=== PATIENT | female | born 1990 | race African-American/Black ===

== ENCOUNTER 2016-10-17 09:29 | Emergency (ER) | payer OTHER ==
[~2016-10-17] VITALS: Ht 170.2 cm; Wt 90.7 kg
--- NOTE | 2016-10-17 10:23 | PHYS DOC ---
Past Medical History Past Medical History: No Pertinent History Past Surgical History: Tubal ligation Alcohol Use: None Drug Use: None Adult General Chief Complaint Chief Complaint: SORE THROAT HPI HPI Patient is a 26 year old female who presents with sore throat since last night. Denies cough, congestion, n/v/d, or other accompanying symptoms. States she is unsure if fever at home. No interventions prior to arrival. Unknown illness exposure and no recent antibiotic use. Review of Systems Review of Systems Constitutional: Denies fever or chills Eyes: Denies change in visual acuity, redness, or eye pain ENT: Sore throat since last night Respiratory: Denies cough or shortness of breath Cardiovascular: No additional information not addressed in HPI GI: Denies abdominal pain, nausea, vomiting, bloody stools or diarrhea : Denies dysuria or hematuria Musculoskeletal: Denies back pain or joint pain Integument: Denies rash or skin lesions Neurologic: Denies headache, focal weakness or sensory changes Endocrine: Denies polyuria or polydipsia Current Medications Current Medications Current Medications Medications (Trade) Dose Ordered Sig/Ruperto Start Time Stop Time Status Last Admin Dose Admin Penicillin G Benzathine (Bicillin L-A) 1,200,000 unit 1X ONCE 10/17/16 10:30 10/17/16 10:31 DC 10/17/16 10:24 1,200,000 UNIT Allergies Allergies Allergies Coded Allergies Type Severity Reaction Last Updated Verified No Known Drug Allergies 11/20/14 No Physical Exam Physical Exam Constitutional: Well developed, well nourished, no acute distress, non-toxic appearance. HENT: Normocephalic, atraumatic, bilateral external ears normal, oropharynx moist, nose normal. Bilateral tonsils 3+ with exudate. Eyes: PERRLA, EOMI, conjunctiva normal, no discharge. Neck: Normal range of motion, no tenderness, supple, no stridor. Anterior cervical adenopathy Cardiovascular:Heart rate regular rhythm, no murmur Lungs & Thorax: Bilateral breath sounds clear to auscultation Abdomen: Bowel sounds normal, soft, no tenderness, no masses, no pulsatile masses. [] Skin: Warm, dry, no erythema, no rash. [] Back: No tenderness, no CVA tenderness. [] Extremities: No tenderness, no cyanosis, no clubbing, ROM intact, no edema. [] Neurologic: Alert and oriented X 3, normal motor function, normal sensory function, no focal deficits noted. [] Psychologic: Affect normal, judgement normal, mood normal. [] Current Patient Data Vital Signs Vital Signs Date Time Temp Pulse Resp B/P Pulse Ox O2 Delivery O2 Flow Rate FiO2 10/17/16 10:40 97 18 126/76 98 Room Air 10/17/16 09:36 98.8 98.8 Lab Values Laboratory Tests Test 10/17/16 09:37 Group A Streptococcus Rapid Negative (NEGATIVE) EKG EKG [] Radiology/Procedures Radiology/Procedures [] Impressions: 1. Acute Pharyngitis Course & Med Decision Making Course & Med Decision Making Pertinent Labs and Imaging studies reviewed. (See chart for details) [] Dragon Disclaimer Dragon Disclaimer This electronic medical record was generated, in whole or in part, using a voice recognition dictation system. Departure Departure Impression: Primary Impression: Pharyngitis, acute Disposition: 01 HOME, SELF-CARE Condition: STABLE Referrals: ROME GENTILE MD (PCP) Patient Instructions: Viral and Bacterial Pharyngitis, [id number] Additional Instructions: You have been given an antibiotic shot during your visit today for strep throat. You may take Ibuprofen or Tylenol to assist with discomfort and/or fever. Follow up with your doctor in 1-2 days. please return if problems or concerns. Problem Qualifiers Primary Impression: Pharyngitis, acute Pharyngitis/tonsillitis etiology: unspecified etiology Qualified Code: J02.9 - Acute pharyngitis, unspecified ARIEL LANGLEY APRN Oct 17, 2016 10:23
[2016-10-17 10:24] LABS: NEGATIVE OBC STREP NEG; POSITIVE OBC STREP POS
[2016-10-17] MEDS ORDERED: PENICILLIN G BENZATHINE LA 1,200,000 UNIT/2 ML DISP.SYRIN. IM ONE (10:30)
[2016-10-17 10:40] VITALS: BP 126/76
== END 2016-10-17 10:45 | disposition home or self-care (01) ==
LOC: ER 09:29
DX: J02.9 Acute pharyngitis, unspecified (principal)
CPT/HCPCS: 87070; 87880; 96372; 99283; J0561

== ENCOUNTER 2018-11-07 01:39 | Emergency (ER) | payer SELFPAY ==
[~2018-11-07] VITALS: Ht 170.2 cm; Wt 90.7 kg
[2018-11-07 02:15] VITALS: BP 145/90
[2018-11-07 02:30] LABS: BILIRUBIN,URINE NEGATIVE (NEG); CLARITY,URINE CLOUDY; COLOR,URINE YELLOW; NITRITE,URINE POSITIVE (NEG); PROTEIN,URINE 100 mg/dL (NEG-TRACE)
[2018-11-07 02:39] LABS: BACTERIA,URINE MANY /HPF (0-FEW); SQUAMOUS EPITHELIAL CELL,UR OCC /LPF; WBC,URINE TNTC /HPF (0-4)
[2018-11-07] MEDS ORDERED: CEPH500C PO (03:10)
[2018-11-07] MEDS ORDERED: HYDR-3164 PO (03:10)
--- NOTE | 2018-11-07 03:14 | PHYS DOC ---
Past Medical History Past Medical History: No Pertinent History, UTI Past Surgical History: Tubal ligation Smoking: Less than 1pk/day Alcohol Use: Occasionally Drug Use: None (Denies recreational drug use) Adult General Chief Complaint Chief Complaint: FLANK PAIN HPI HPI Ms. Ludmila Inman is a 28 year old female who was presents with right flank pain. When entering the room pt was on cell phone talking. Pt reports the pain started earlier today around 1100 am gradual in onset, progressively worsening throughout the day. Her pain is located on her right flank and it radiates anteriorly and into her pelvis. also noted vaginal pain and itching and she wants to be checked for std Pt reports increased urgency and frequency but denies hematuria or dysuria. She denies having experienced pain like this before. She denies diarrhea/constipation, n/v, fever/chills.On questioning she denied any recreational drug use. She has had 3 children and then had an elective tubal ligation in 2013. 3 ML Review of Systems Review of Systems Constitutional: Denies fever or chills [] Eyes: Denies change in visual acuity, redness, or eye pain [] HENT: Denies nasal congestion or sore throat [] Respiratory: Denies cough or shortness of breath [] Cardiovascular: No additional information not addressed in HPI [] GI: Denies abdominal pain, nausea, vomiting, bloody stools or diarrhea [] : Denies dysuria or hematuria [] Musculoskeletal: Denies back pain or joint pain [] Integument: Denies rash or skin lesions [] Neurologic: Denies headache, focal weakness or sensory changes [] Endocrine: Denies polyuria or polydipsia [] All other systems were reviewed and found to be within normal limits, except as documented in this note. Family History Family History Maternal Grandfather - 64 yo, bladder or kidney cancer; maternal grandmother - 60 yo, has had breast cancer twice Father - HTN, DM2 Current Medications Current Medications Current Medications Medications (Trade) Dose Ordered Sig/Ruperto Start Time Stop Time Status Last Admin Dose Admin Azithromycin (Zithromax) 1,000 mg 1X ONCE 11/07/18 03:15 11/07/18 03:16 DC 11/07/18 03:32 1,000 MG Ceftriaxone Sodium (Rocephin) 1 gm 1X ONCE 11/07/18 03:15 11/07/18 03:16 DC 11/07/18 03:32 1 GM Ketorolac Tromethamine (Toradol 15mg Vial) 15 mg 1X ONCE 11/07/18 03:15 11/07/18 03:16 DC 11/07/18 03:32 15 MG Allergies Allergies Allergies Coded Allergies Type Severity Reaction Last Updated Verified No Known Drug Allergies 11/20/14 No Physical Exam Physical Exam Constitutional: Well developed, well nourished, in mild distress non-toxic appearance. Neck: Normal range of motion, no tenderness, supple, no stridor. Cardiovascular:Heart rate regular rhythm, no murmur Lungs & Thorax: Bilateral breath sounds clear to auscultation Abdomen: Bowel sounds normal, soft, no masses, no pulsatile masses. TTP in Lower quadrants/pelvis bilaterally Skin: Warm, dry, no erythema, no rash. Back: TTP in right flank/ lateral back at lumbar level, slight CVA tenderness on right. gu; physiologic d/c no cmt Neurologic: Alert and oriented X 3, normal motor function, normal sensory function, no focal deficits noted. [] Psychologic: Affect normal, judgement normal, mood normal. [] Current Patient Data Vital Signs Vital Signs Date Time Temp Pulse Resp B/P (MAP) Pulse Ox O2 Delivery O2 Flow Rate FiO2 11/07/18 02:15 98.3 92 20 145/90 (108) 98 Room Air 98.3 Lab Values Laboratory Tests Test 11/07/18 01:41 11/07/18 01:50 Urine Collection Type Unknown Urine Color Yellow Urine Clarity Cloudy Urine pH 6.0 Urine Specific [place] 1.010 Urine Protein 100 mg/dL (NEG-TRACE) Urine Glucose (UA) Negative mg/dL (NEG) Urine Ketones (Stick) Negative mg/dL (NEG) Urine Blood Large (NEG) Urine Nitrite Positive (NEG) Urine Bilirubin Negative (NEG) Urine Urobilinogen Dipstick 1.0 mg/dL (0.2 mg/dL) Urine Leukocyte Esterase Large (NEG) Urine RBC 3-5 /HPF (0-2) Urine WBC Tntc /HPF (0-4) Urine Squamous Epithelial Cells Occ /LPF Urine Bacteria Many /HPF (0-FEW) Urine Mucus Slight /LPF POC Urine HCG, Qualitative Hcg negative (Negative) Microbiology 11/07/18 Wet Prep - Final, Complete EKG EKG [] Radiology/Procedures Radiology/Procedures [] Course & Med Decision Making Course & Med Decision Making Pertinent Labs and Imaging studies reviewed. (See chart for details) []28 yo with urgency, frequency right flank pain u/a shows uti noted bv, flagyl given treated presumptively for std's pelvic exam not c/w pid. i dont think she has kidney stone based on presentation, recommended trial of abx for symptomatic improvment come back in 12-24 hours for fever vomiting or worsening pain she is agreeable. treated presumptively for std as well. abdomen exam benign not c/w surgicla process Dragon Disclaimer Dragon Disclaimer This electronic medical record was generated, in whole or in part, using a voice recognition dictation system. Departure Departure Impression: Primary Impression: Urinary tract infection Disposition: HOME, SELF-CARE Condition: STABLE Scripts Metronidazole (FLAGYL) 500 Mg Tablet 1 TAB PO BID, #14 TAB Prov: HOLLY BANKS MD 11/07/18 Hydrocodone/Apap 5-325 (NORCO 5-325 TABLET) 1 Each Tablet 1-2 EACH PO PRN Q6HRS PRN for PAIN, #15 as needed for pain Prov: HOLLY BANKS MD 11/07/18 Cephalexin (CEPHALEXIN) 500 Mg Capsule 1 CAP PO QID, #40 CAP Prov: HOLLY BANKS MD 11/07/18 HOLLY BANKS MD Nov 07, 2018 03:14
[2018-11-07] MEDS ORDERED: KETOROLAC 15 MG/ML VIAL. IV ONE (03:15)
[2018-11-07] MEDS ORDERED: cefTRIAXone IV Push 1 GM VIAL. IVP ONE (03:15)
[2018-11-07] MEDS ORDERED: AZITHROMYCIN 250 MG TABLET. PO ONE (03:15)
[2018-11-07] MEDS ORDERED: METR500T PO (04:03)
[2018-11-10 14:19] LABS: GC PROBE Negative (Negative)
== END 2018-11-07 04:20 | disposition home or self-care (01) ==
LOC: ER 01:39
DX: N39.0 Urinary tract infection, site not specified (principal); F17.200 Nicotine dependence, unspecified, uncomplicated; Z98.51 Tubal ligation status
CPT/HCPCS: 81001; 81025; 87086; 96374; 96375; 99283; J0696; J1885; Q0111; Q0144; 87186; 87491; 87591

== ENCOUNTER 2018-12-02 10:32 | Emergency (ER) | payer SELFPAY ==
[~2018-12-02] VITALS: Ht 170.2 cm; Wt 90.7 kg
[~2018-12-02 10:32] MED LIST: CEPH500C PO; HYDR-3164 PO; METR500T PO
[2018-12-02 10:46] VITALS: BP 120/64
--- NOTE | 2018-12-02 10:53 | PHYS DOC ---
Past Medical History Past Medical History: No Pertinent History, UTI Past Surgical History: Tubal ligation Alcohol Use: Occasionally Drug Use: None Adult General Chief Complaint Chief Complaint: BACK PAIN OR INJURY HPI HPI Patient is a 28 year old female presented ER today for evaluation of right- sided upper back pain, chest pain for a week, the pain get worse with cough or taking a deep breast or movement of her right shoulder. Patient denies any injury. Patient denies any cough or fever. Patient complaint of sinus congestion and sore throat and right ear pain as well. Patient has history of frequent strep pharyngitis. Review of Systems Review of Systems Constitutional: Denies fever or chills [] Eyes: Denies change in visual acuity, redness, or eye pain [] HENT: Denies nasal congestion, POSITIVE FOR sore throat [] Respiratory: Denies cough or shortness of breath [] Cardiovascular: No additional information not addressed in HPI [] GI: Denies abdominal pain, nausea, vomiting, bloody stools or diarrhea [] : Denies dysuria or hematuria [] Musculoskeletal:Positive for right upper back pain, no joint pain [] Integument: Denies rash or skin lesions [] Neurologic: Denies headache, focal weakness or sensory changes [] Endocrine: Denies polyuria or polydipsia [] All other systems were reviewed and found to be within normal limits, except as documented in this note. Allergies Allergies Allergies Coded Allergies Type Severity Reaction Last Updated Verified No Known Drug Allergies 11/20/14 No Physical Exam Physical Exam Constitutional: Well developed, well nourished, no acute distress, non-toxic appearance. [] HENT: Normocephalic, atraumatic, bilateral external ears normal, oropharynx moist, WITH TONSILLAR HYPERTROPHY AND ERYTHEMA, UVULA IS MIDLINE, NO TONSILLAR ABSCESS. Eyes: PERRLA, EOMI, conjunctiva normal, no discharge. [] Neck: Normal range of motion, no tenderness, supple, no stridor. [] Cardiovascular:Heart rate regular rhythm, no murmur [] Lungs & Thorax: Bilateral breath sounds clear to auscultation. RIGHT LATERAL MID POSTERIOR RIB CAGE IS TENDER TO PALPATION, NO CREPITUS, NO RASH Abdomen: Bowel sounds normal, soft, no tenderness, no masses, no pulsatile masses. [] Skin: Warm, dry, no erythema, no rash. [] Back: No tenderness, no CVA tenderness. Extremities: No tenderness, no cyanosis, no clubbing, ROM intact, no edema. [] Neurologic: Alert and oriented X 3, normal motor function, normal sensory function, no focal deficits noted. [] Psychologic: Affect normal, judgement normal, mood normal. [] Current Patient Data Vital Signs Vital Signs Date Time Temp Pulse Resp B/P (MAP) Pulse Ox O2 Delivery O2 Flow Rate FiO2 12/02/18 10:46 98.1 67 18 120/64 (82) 100 Room Air 98.1 EKG EKG [] Radiology/Procedures Radiology/Procedures xray of ribs: no acute disease. Course & Med Decision Making Course & Med Decision Making Pertinent Labs and Imaging studies reviewed. (See chart for details) [] Dragon Disclaimer Dragon Disclaimer This electronic medical record was generated, in whole or in part, using a voice recognition dictation system. Departure Departure Impression: Primary Impression: Acute tonsillitis Additional Impression: Back pain Disposition: HOME, SELF-CARE Condition: IMPROVED Referrals: ROME GENTILE MD (PCP) Patient Instructions: Back Pain, Adult, Tonsillitis Scripts Tramadol Hcl (TRAMADOL HCL) 50 Mg Tablet 50 MG PO Q6HRS PRN for PAIN, #15 TAB Prov: ELVA NORRIS DO 12/02/18 Amoxicillin (AMOXICILLIN) 500 Mg Capsule 500 MG PO TID for 10 Days, #30 CAP 0 Refills Prov: ELVA NORRIS DO 12/02/18 Problem Qualifiers ELVA NORRIS DO Dec 02, 2018 10:53
--- NOTE | 2018-12-02 11:29 | RAD ---
Exam:Right ribs with PA chest Date: 12/02/2018 10:49 AM Comparison: No prior Indication: Mid to right lower back pain. Findings/ Impression: The heart is not enlarged. Mediastinal and hilar contours are normal. No focal parenchymal airspace opacity. No pleural effusion or pneumothorax. AP, Oblique and Spot images of the right ribs are negative for acute displaced rib fracture. Negative focal pleural elevation. Symmetrical intercostal spacing. It is of note that an acute non-displaced rib fracture can be in-apparent on initial post-trauma imaging. Electronically signed by: Vladimir Galaviz MD (12/02/2018 11:26 AM) [id number]
[2018-12-02] MEDS ORDERED: AMOX500C PO (11:58)
[2018-12-02] MEDS ORDERED: TRAM50TA PO (11:58)
== END 2018-12-02 12:13 | disposition home or self-care (01) ==
LOC: ER 10:32
DX: J03.90 Acute tonsillitis, unspecified (principal); M54.6 Pain in thoracic spine
CPT/HCPCS: 71101; 99283

== ENCOUNTER 2019-07-16 08:41 | Emergency (ER) | payer SELFPAY ==
[~2019-07-16] VITALS: Ht 170.2 cm; Wt 86.2 kg
[~2019-07-16 08:41] MED LIST changes: +AMOX500C PO; +TRAM50TA PO
[2019-07-16 08:56] VITALS: BP 125/85
[2019-07-16 10:00] LABS: BILIRUBIN,URINE NEGATIVE (NEG); CLARITY,URINE CLEAR; COLOR,URINE YELLOW; NITRITE,URINE NEGATIVE (NEG); PH,URINE 5.5; PROTEIN,URINE NEGATIVE (NEG-TRACE)
[2019-07-16 10:13] LABS: BACTERIA,URINE MANY /HPF (0-FEW); SQUAMOUS EPITHELIAL CELL,UR MANY /LPF
[2019-07-16 10:14] LABS: WBC,URINE 20-40 /HPF (0-4)
[2019-07-16 10:15] LABS: TRICHOMONAS,URINE PRESENT
--- NOTE | 2019-07-16 10:28 | PHYS DOC ---
Past Medical History Past Medical History: No Pertinent History, UTI Past Surgical History: , Tubal ligation Alcohol Use: Occasionally Drug Use: None Adult General Chief Complaint Chief Complaint: COUGH HPI HPI Patient is a 29 year old smoker female who presents with complaining of cough. Patient complaining of cough for 2 and half weeks as a productive cough with sore throat and nasal congestion without fever and chills, vomiting and diarrhea, abdominal pain, urinary symptom. Patient denies sick contact and taking any medication. Patient complaining of chest soreness because of the cough. Patient also complaining of vaginal discharge for the last few days after having any new sexual partner with itching without urinary symptom and vaginal bleeding. Patient denies . Patient had history of previous STD. Review of Systems Review of Systems Constitutional: Denies fever or chills [] Eyes: Denies change in visual acuity, redness, or eye pain [] HENT: Reports nasal congestion and sore throat Respiratory: Reports cough Cardiovascular: No additional information not addressed in HPI [] GI: Denies abdominal pain, nausea, vomiting, bloody stools or diarrhea [] : Denies dysuria or hematuria [] Musculoskeletal: Denies back pain or joint pain [] Integument: Denies rash or skin lesions [] Neurologic: Denies headache, focal weakness or sensory changes [] Endocrine: Denies polyuria or polydipsia [] All other systems were reviewed and found to be within normal limits, except as documented in this note. Current Medications Current Medications Current Medications Medications (Trade) Dose Ordered Sig/Ruperto Start Time Stop Time Status Last Admin Dose Admin Azithromycin (Zithromax) 1,000 mg 1X ONCE 07/16/19 11:00 07/16/19 11:01 DC 07/16/19 11:02 1,000 MG Ceftriaxone Sodium (Rocephin Im) 1 gm 1X ONCE 07/16/19 11:00 07/16/19 11:01 DC 07/16/19 11:11 1 GM Allergies Allergies Allergies Coded Allergies Type Severity Reaction Last Updated Verified No Known Drug Allergies 11/20/14 No Physical Exam Physical Exam Constitutional: Well developed, well nourished, mild distress, non-toxic appearance. [] HENT: Normocephalic, atraumatic, bilateral external ears normal, oropharynx moist, no oral exudates, nose normal. [] Eyes: PERRLA, EOMI, conjunctiva normal, no discharge. [] Neck: Normal range of motion, no tenderness, supple, no stridor. [] Cardiovascular:Heart rate regular rhythm, no murmur [] Lungs & Thorax: Bilateral breath sounds clear to auscultation [] Abdomen: Bowel sounds normal, soft, no tenderness, no masses, no pulsatile masses. Vaginal exam was performed by nurse practitioner Good Rice with large amount of yellow discharge. Skin: Warm, dry, no erythema, no rash. [] Back: No tenderness, no CVA tenderness. [] Extremities: No tenderness, no cyanosis, no clubbing, ROM intact, no edema. [] Neurologic: Alert and oriented X 3, normal motor function, normal sensory function, no focal deficits noted. [] Psychologic: Affect normal, judgement normal, mood normal. [] Current Patient Data Vital Signs Vital Signs Date Time Temp Pulse Resp B/P (MAP) Pulse Ox O2 Delivery O2 Flow Rate FiO2 07/16/19 08:56 99.3 88 16 125/85 (98) 96 Room Air 99.3 Lab Values Laboratory Tests Test 07/16/19 09:50 07/16/19 09:51 Urine Collection Type Unknown Urine Color Yellow Urine Clarity Clear Urine pH 5.5 Urine Specific [place] 1.025 Urine Protein Negative mg/dL (NEG-TRACE) Urine Glucose (UA) Negative mg/dL (NEG) Urine Ketones (Stick) Negative mg/dL (NEG) Urine Blood Negative (NEG) Urine Nitrite Negative (NEG) Urine Bilirubin Negative (NEG) Urine Urobilinogen Dipstick 1.0 mg/dL (0.2 mg/dL) Urine Leukocyte Esterase Moderate (NEG) Urine RBC 1-2 /HPF (0-2) Urine WBC 20-40 /HPF (0-4) Urine Squamous Epithelial Cells Many /LPF Urine Bacteria Many /HPF (0-FEW) Urine Mucus Marked /LPF Urine Trichomonas Present POC Urine HCG, Qualitative Hcg negative (Negative) Microbiology 07/16/19 Wet Prep - Final, Complete EKG EKG [] Radiology/Procedures Radiology/Procedures [] Course & Med Decision Making Course & Med Decision Making Pertinent Lab reviewed. (See chart for details) Evaluation of patient in ER showed 29-year-old female patient with complaining o f cough and vaginal discharge. Patient had negative tests. UA showed UTI and vaginitis showed chlamydia. Patient treated with Rocephin 1 g IM and Zithromax 1000 mg by mouth in ER and prescription for Flagyl and Cipro was given. Patient was discharged home with diagnosis of bronchitis and STD. Patient was advised to avoid of sexual activity until treatment of sexual partner. I've spoken with the patient and/or caregivers. I've explained the patient's condition, diagnosis and treatment plan based on information available to me at this time. I've answered the patient's and/or caregivers questions and addressed any concerns. The patient and/or caregivers have a good understanding the patient's diagnosis, condition and treatment plan as can be expected at this point. Vital signs have been stabilized. The patient's condition is stable for discharge from the emergency department. The patient will pursue further outpatient evaluation with her primary care provider or other designated consulting physician as outlined in the discharge instructions. Patient and/or caregivers are agreeable to this plan of care and follow-up instructions have been explained in detail. The patient and/or caregivers have received these instructions in written format and expressed understanding of these discharge instructions. The patient and her caregivers are aware that if any significant change in condition or worsening of symptoms should prompt him to immediately return to this of the closest emergency departm ent. If an emergent department is not readily available I would encourage him to call 911. Linda Disclaimer Linda Disclaimer This electronic medical record was generated, in whole or in part, using a voice recognition dictation system. Departure Departure Impression: Primary Impression: Acute bronchitis Additional Impressions: Urinary tract infection Trichomonal cervicitis STD (female) Tobacco abuse Tobacco abuse counseling Disposition: HOME, SELF-CARE (at 1150) Condition: IMPROVED Referrals: GOOD GENTILE MD (PCP) Patient Instructions: Acute Bronchitis, Sexually Transmitted Disease, Trichomoniasis, Urinary Tract Infection Additional Instructions: Drink plenty of liquids Follow-up with your primary care physician in 3-5 days Return to ER if not getting better Quit smoking Do not have sexual activity before treatment of your partner Scripts Benzonatate (TESSALON PERLE) 100 Mg Capsule 1 CAP PO TID for cough, #21 CAP Prov: FRANCISCO MALCOLM MD 07/16/19 Sulfamethoxazole/Trimethoprim (BACTRIM DS TABLET) 1 Each Tablet 1 TAB PO BID for infection, #14 TAB Prov: FRANCISCO MALCOLM MD 07/16/19 Metronidazole (FLAGYL) 500 Mg Tablet 1 TAB PO BID, #14 TAB Prov: FRANCISCO MALCOLM MD 07/16/19 Problem Qualifiers Primary Impression: Acute bronchitis Bronchitis organism: unspecified organism Qualified Codes: J20.9 - Acute bronchitis, unspecified Additional Impressions: Urinary tract infection Urinary tract infection type: acute cystitis Hematuria presence: without hematuria Qualified Codes: N30.00 - Acute cystitis without hematuria FRANCISCO MALCOLM MD Jul 16, 2019 10:28
[2019-07-16] MEDS ORDERED: cefTRIAXone IM 1 GM VIAL IM ONE (11:00)
[2019-07-16] MEDS ORDERED: AZITHROMYCIN 250 MG TABLET. PO ONE (11:00)
[2019-07-16] MEDS ORDERED: BENZ100C PO (11:19)
[2019-07-16] MEDS ORDERED: SULF1TAB24 PO (11:19)
[2019-07-16] MEDS ORDERED: METR500T PO (11:19)
[2019-07-18 05:10] LABS: GC PROBE Negative (Negative)
== END 2019-07-16 11:32 | disposition home or self-care (01) ==
LOC: ER 08:41
DX: J20.9 Acute bronchitis, unspecified (principal); N39.0 Urinary tract infection, site not specified; A59.09 Other urogenital trichomoniasis; A64 Unspecified sexually transmitted disease; Z72.0 Tobacco use; Z71.6 Tobacco abuse counseling; Z98.51 Tubal ligation status
CPT/HCPCS: 81001; 81025; 87086; 87491; 87591; 96372; 99284; J0696; Q0111; Q0144

== ENCOUNTER 2021-02-19 10:32 | Emergency (ER) | payer SELFPAY ==
[~2021-02-19] VITALS: Ht 170.2 cm; Wt 91.4 kg
[~2021-02-19 10:32] MED LIST changes: +BENZ100C PO; +SULF1TAB24 PO
--- NOTE | 2021-02-19 10:52 | ED.ADGEN ---
Past Medical History Past Medical History: No Pertinent History, UTI Past Surgical History: , Tubal ligation Smoking Status: Current Some Day Smoker Alcohol Use: Occasionally Drug Use: None General Adult EDM: Chief Complaint: COUGH HPI: HPI: Patient is a 30-year-old previously healthy female who presents to the emergency room complaining of 2 days of cough and congestion. Patient states that she was exposed to COVID-19 last week. She denies any sore throat, headache, fever, chills, sweats, chest pain. She does get some discomfort when she coughs. She is unsure whether she could be . She is taking NyQuil at home for her symptoms which does help her sleep at night. She states the cough is worse at night typically when the temperature is lower. She does not have any shortness of breath. Review of Systems: Review of Systems: Complete ROS is negative unless otherwise documented in HPI Allergies: Allergies: Allergies Coded Allergies Type Severity Reaction Last Updated Verified No Known Drug Allergies 02/19/21 No Physical Exam: PE: General: Awake, alert, NAD. Well Nourished, well hydrated. Cooperative HEENT: Atraumatic, EOMI, PERRL, airway patent, moist oral mucosa Neck: Supple, trachea midline Respiratory: CTA bilaterally, normal effort, no wheezing/crackles CV: RRR, no murmur, cap refill <2 GI: Soft, nondistended, nontender, no masses MSK: No obvious deformities Skin: Warm, dry, intact Neuro: A&O x3, speech NL, sensory and motor grossly intact, no focal deficits Psych: Normal affect, normal mood, not suicidal or homicidal Current Patient Data: Labs: Laboratory Tests Test 02/19/21 11:10 POC Urine HCG, Qualitative Hcg negative (Negative) Vital Signs: Vital Signs Date Time Temp Pulse Resp B/P (MAP) Pulse Ox O2 Delivery O2 Flow Rate FiO2 02/19/21 12:15 88 20 124/78 (93) 97 Room Air 02/19/21 10:35 98.7 98.7 EKG: EKG: [] Heart Score: C/O Chest Pain: N/A Risk Factors: Risk Factors: DM, Current or recent (<one month) smoker, HTN, HLP, family history of CAD, obesity. Risk Scores: Score 0 - 3: 2.5% MACE over next 6 weeks - Discharge Home Score 4 - 6: 20.3% MACE over next 6 weeks - Admit for Clinical Observation Score 7 - 10: 72.7% MACE over next 6 weeks - Early Invasive Strategies Radiology/Procedures: Radiology/Procedures: [] Course & Med Decision Making: Course & Med Decision Making Pertinent Labs and Imaging studies reviewed. (See chart for details) Patient presents to the Emergency Room c/o URI symptoms including cough and congestion. Patient likely has a viral infection including but not limited to COVID-19. Patient does not appear to have strep pharyngitis at this time as they do not have any swelling or erythema in the posterior pharynx. Influenza swab w as not obtained. Patient was swabbed for novel coronavirus 19. We did discuss quarantine until her results come back and then further quarantine if she has a positive test. Chest x-ray was done and is normal. Patient will be treated with symptomatic care. At time of discharge, patient is stable, well appearing, and has normal vitals. Results and plan of care was discussed with the patient and their questions were answered. Patient will be discharged home with appropriate treatment and will follow up with their PCP. Strict return precautions were given. Dragon Disclaimer: [employer] Disclaimer: This electronic medical record was generated, in whole or in part, using a voice recognition dictation system. Departure Departure Impression: Primary Impression: Upper respiratory infection Additional Impression: Person under investigation for COVID-19 Disposition: 01 HOME / SELF CARE / HOMELESS Condition: STABLE Referrals: ROME GENTILE MD (PCP) Patient Instructions: Upper Respiratory Infection, Adult Additional Instructions: Thank you for visiting [facility]. We appreciate you trusting us with your care. If any additional problems come up please don't hesitate to return to visit us. Follow up with your primary care provider so they can plan additional care if needed and know about the problem that you had today. If symptoms worsen come back to the Emergency Department. Any concerning symptoms that start such as chest pain, shortness of air, weakness or numbness on one side of the body, running high fevers or any other concerning symptoms return to the ER. You have a viral syndrome which may include symptoms like muscle aches, fevers, chills, runny nose, cough, sneezing, sore throat, nausea, vomiting, or diarrhea. One of the potential viruses that you may have is SARS-CoV-2, the virus that causes COVID-19, also known as the Coronavirus. You are just as likely to have a different viral infection such as the common cold, flu, etc. Most patients with the Coronavirus have mild symptoms and recover on their own. Resting, staying hydrated, and sleep based on known cases can be helpful. As of todays visit, you are well enough to go home and treat your symptoms with oral fluids and over the counter medications. Coronavirus testing is not performed on most people with mild symptoms who are being discharged from the emergency department. If Coronavirus testing was performed today the results will not be available for possibly up to 3-4 days. If your result is positive you will be contacted. Please follow the following precautions at home: 1. Stay home except to get medical care. 2. As advised by the CDC, we recommend that you stay in your home and minimize contact with other people. We do not want you to spread the infection. 3. Those who are older or have significant medical issues may have more severe symptoms from this infection. We recommend self-isolation FOR AT LEAST 7 DAYS after your 1st day of symptoms. AFTER you feel better please wait AT LEAST ANOTHER WEEK before returning to regular activities and being around other people. 4. IF you become sicker and have difficulty breathing, chest pain, are unable to eat/drink, severe vomiting, diarrhea, or weakness you may need to return to the Emergency Department. 5. You should restrict activities outside of your home, except for getting medical care. DO NOT go to work, school, or public areas. Avoid using public transportation, ride sharing, or taxis. 6. Separate yourself from other people in your home. You should use a separate bathroom if possible. 7. Avoid sharing personal household items such as dishes, cups, eating utensils, towels, etc. 8. Clean all high touch surfaces every day (door knobs, counter tops, etc). Use a household cleaning spray or wipe per label instructions. 9. Clean your hands often. Wash your hands with soap and water for at least 20 seconds. 10. Cover your mouth and nose when you cough or sneeze. 11. Throw used tissues in the trash and immediately wash your hands. For additional resources please visit the CDC website or the [facility] ([phone]), you may also call 211 for further information. Scripts Benzonatate (TESSALON PERLE) 100 Mg Capsule 1 CAP PO TID for cough, #21 CAP Prov: KELSEA CRUZ MD 02/19/21 Cetirizine Hcl/Pseudoephedrine (ZYRTEC-D TABLET) 1 Each Tab.er.12h 1 TAB PO BID PRN for COUGH for 10 Days, #20 TAB Prov: KELSEA CRUZ MD 02/19/21 Problem Qualifiers KELSEA CRUZ MD Feb 19, 2021 10:52
--- NOTE | 2021-02-19 11:26 | RAD ---
Single view chest dated 02/19/2021 11:23 AM: COMPARISON: None Clinical Indication: Pain. Findings: Single upright portable exam of the chest was performed. Heart and mediastinal contours within normal limits. Lungs are clear. No consolidation or pleural effusion. No pneumothorax. IMPRESSION: No acute radiographic abnormality. Electronically signed by: Adrián Watters MD (02/19/2021 11:23 AM) [id number]
[2021-02-19] MEDS ORDERED: CETI1TAB7 PO (11:56)
[2021-02-19] MEDS ORDERED: BENZ100C PO (11:56)
[2021-02-19 12:15] VITALS: BP 124/78
--- NOTE | 2021-02-20 15:12 | NUR ---
IP: Informed pt of negative covid test. Pt verbalized understanding.
== END 2021-02-19 12:15 | disposition home or self-care (01) ==
LOC: ER 10:32
DX: J06.9 Acute upper respiratory infection, unspecified (principal); Z20.822 Contact with and (suspected) exposure to COVID-19; F17.200 Nicotine dependence, unspecified, uncomplicated
CPT/HCPCS: 71045; 81025; 99284; U0003

== ENCOUNTER 2021-04-17 13:47 | Emergency (ER) | payer SELFPAY ==
[~2021-04-17 13:47] MED LIST changes: +CETI1TAB7 PO
== END 2021-04-17 21:06 | disposition left against medical advice (07) ==
LOC: ER 13:47
DX: J02.9 Acute pharyngitis, unspecified (principal); Z53.21 Procedure and treatment not carried out due to patient leaving prior to being seen by health care provider